=== PATIENT | male | born 1960 | race Caucasian/White ===

== ENCOUNTER 2021-02-08 11:20 | Outpatient (CLI) | payer OTHER ==
[~2021-02-08] VITALS: Ht 170.2 cm; Wt 99.8 kg
== END 2021-02-08 23:59 | disposition home or self-care (01) ==
LOC: MLB 11:20 → EDSTATUS 02-16 15:45
PROVIDERS: ATTEND Internal Medicine Gastroenterology
DX: K75.81 Nonalcoholic steatohepatitis (NASH) (principal); Z20.822 Contact with and (suspected) exposure to COVID-19; Z53.8 Procedure and treatment not carried out for other reasons
CPT/HCPCS: U0003